=== PATIENT | female | born 1995 | race Caucasian/White ===

== ENCOUNTER 2017-03-04 10:26 | Emergency (ER) | payer OTHER ==
[~2017-03-04] VITALS: Ht 162.6 cm; Wt 54.1 kg
[2017-03-04 10:32] VITALS: Ht 162.6 cm; Wt 54.1 kg
[2017-03-04] MEDS ORDERED: BUSP-8 PO (10:51)
[2017-03-04] MEDS ORDERED: BCPILLS PO (10:51)
--- NOTE | 2017-03-04 11:36 | EMERGENCY ROOM VISIT NOTE ---
ED Visit Note First contact with patient: 10:40 CHIEF COMPLAINT: Body Fluid exposure HPI: This 22-year-old female presents to the Emergency Department ambulatory for evaluation of a body fluid exposure which occurred just prior to arrival. The patient was cleaning a bed and states that she stuck her finger with a needle which was in the bed. The wound has already been cleansed. Bleeding is controlled. They deny numbness, tingling, or loss of motion. Source patient is known. History of the source patient is not known at this time. The patient works at [employer]. They have had the hepatitis B. vaccination. They believe their tetanus is up-to-date. Pain is 0/10. ALLERGIES: Latex, shellfish MEDICATIONS: control pills, buspirone PMH: No significant past medical history. SOCIAL HISTORY: The patient lives locally with family. She is a smoker. She denies alcohol use. Physical Exam: VITALS: Nursing notes reviewed and vitals are stable. GENERAL: This is a 22-year-old female, in no acute distress, well developed, well nourished. SKIN: Warm and dry with good turgor. No abrasions. There is a solitary puncture beny present at the left palm. Bleeding is controlled. No edema. Capillary refill is 2+. MUSCULOSKELETAL: Patient has full active range of motion of the hand. Normal strength. NEURO: Gross sensation is intact across the left hand. ED COURSE: I examined the patient. Option of HIV, hepatitis C, and hepatitis B testing was discussed with the patient. The risks, benefits, purpose, and limitations of the tests were explained to the patient and all of their questions were answered. They elected to proceed. I did perform pretest counseling and the appropriate consent forms were signed. Patient was given information on prevention of exposure and transmission as well as hospital confidentiality. Blood exposure handout was provided. The patient's blood was drawn. Risks and benefits of HIV prophylaxis were discussed with the patient. The patient declined HIV prophylaxis at this time. They will follow-up with employee health, who is already aware of the situation. Wound care instructions were provided. The patient was discharged in stable condition. Impression: Body fluid exposure Plan: Follow up with employee health for further evaluation, treatment, and test results. Current/Historical Medications Scheduled Control Pills ( Control Pills), 1 TAB PO DAILY Buspirone Hcl (Buspirone Hcl), 10 MG PO UD Allergies Coded Allergies: Latex (Unverified Allergy, Severe, HIVES, 03/04/17) Shellfish (Unverified Allergy, Severe, HIVES, 03/04/17) Vital Signs Date Time Temp Pulse Resp B/P Pulse Ox O2 Delivery O2 Flow Rate FiO2 03/04/17 11:47 36.6 64 16 118/87 99 03/04/17 10:32 36.6 81 16 124/80 99 Room Air Departure Information Impression Primary Impression: Needlestick injury of finger Dispostion Home / Self-Care Condition GOOD Referrals Viktor Nicole M.D. (PCP) Patient Instructions [facility] Additional Instructions Follow up with employee health for further evaluation, treatment, and test results. Problem Qualifiers Primary Impression: Needlestick injury of finger Encounter type: initial encounter Qualified Codes: S61.239A - Puncture wound without foreign body of unspecified finger without damage to nail, initial encounter
[2017-03-04 11:47] VITALS: BP 118/87; PULSE 64; TEMP 36.6; O2SAT 99
== END 2017-03-04 11:41 | disposition home or self-care (01) ==
LOC: C.EDB 10:27 → C.EDD 11:41
DX: S61.239A Puncture wound without foreign body of unspecified finger without damage to nail, initial encounter (principal); W46.1XXA Contact with contaminated hypodermic needle, initial encounter; Y92.238 Other place in hospital as the place of occurrence of the external cause; Y99.0 Civilian activity done for income or pay; X58.XXXA Exposure to other specified factors, initial encounter; F17.210 Nicotine dependence, cigarettes, uncomplicated